=== PATIENT | female | born 1980 | race African-American/Black ===

== ENCOUNTER 2017-03-25 15:43 | Emergency (ER) | payer MEDICAID ==
[2017-03-25] MEDS ORDERED: LIDOCAINE 1% INJ-PF (10 MG/ML) 30 ML SDV INJ ONE (17:22)
[2017-03-25] MEDS ORDERED: ONDANSETRON 4 MG TAB.RAPDIS PO ONE (17:22)
[2017-03-25] MEDS ORDERED: CEFTRIAXONE INJ 1000 MG VIAL IM ONE (17:22)
--- NOTE | 2017-03-25 17:26 | ER Document Report ---
HPI - HPI Patient complains to provider of: Toothache and nausea Onset: Other Onset/Duration: Gradual Quality of pain: Burning, Throbbing Severity: Moderate Pain Level: 3 Context: Patient states she has had a toothache to the right lower jaw since last Monday. Nose that she has a large cavity in that tooth but has not been seen by a dentist. Patient also complains of epigastric burning with nausea since Monday. States she has had these symptoms before. Patient states she has a history of frequent heartburn Associated Symptoms: Nausea Exacerbated by: Food Relieved by: Denies Similar symptoms previously: Yes Recently seen / treated by doctor: No - ROS ROS below otherwise negative: Yes Systems Reviewed and Negative: Yes All other systems reviewed and negative - CONSTITUTIONAL Constitutional: DENIES: Fever - EENT EENT: DENIES: Congestion - NEURO Neurology: DENIES: Headache - CARDIOVASCULAR Cardiovascular: DENIES: Chest pain - RESPIRATORY Respiratory: DENIES: Trouble Breathing - GASTROINTESTINAL Gastrointestinal: REPORTS: Abdominal Pain - Epigastric burning, Nausea - URINARY Urinary: DENIES: Dysuria - REPRODUCTIVE Reproductive: DENIES: : - MUSCULOSKELETAL Musculoskeletal: DENIES: Extremity pain - DERM Skin Color: Normal Past Medical History - General Information source: Patient - Social History Smoking Status: Never Smoker Frequency of alcohol use: None Drug Abuse: None Lives with: Family Family History: Reviewed & Not Pertinent - Medical History Medical History: Negative Surgical Hx: Negative Vertical Provider Document - CONSTITUTIONAL Agree With Documented VS: Yes Exam Limitations: No Limitations General Appearance: WD/WN - INFECTION CONTROL TRAVEL OUTSIDE OF THE [place] IN LAST 30 DAYS: No - HEENT HEENT: Atraumatic, Normocephalic Mouth Diagram: 1 - Large amount of decay to tooth, mild swelling to gums around tooth. - NECK Neck: Normal Inspection, Supple - RESPIRATORY Respiratory: Breath Sounds Normal, No Respiratory Distress O2 Sat by Pulse Oximetry: 100 - CARDIOVASCULAR Cardiovascular: Regular Rate, Regular Rhythm - GI/ABDOMEN Gastrointestinal: Abdomen Soft, Normal Bowel Sounds Notes: Patient mildly tender to epigastric area on palpation. States pain level 2 out of 5 with pressure. - MUSCULOSKELETAL/EXTREMETIES Musculoskeletal/Extremeties: MAEW - NEURO Level of Consciousness: Awake, Alert, Appropriate - DERM Integumentary: Warm, Dry Course - Re-evaluation Re-evalutation: 03/25/17 18:58 Patient states relief of epigastric pain with GI cocktail. - Vital Signs Vital signs: Temp Pulse Resp BP Pulse Ox 98.2 F 62 16 137/82 H 100 03/25/17 15:53 03/25/17 15:53 03/25/17 15:53 03/25/17 15:53 03/25/17 15:53 Discharge - Discharge Clinical Impression: Pain due to dental caries, Epigastric pain Condition: Good Disposition: HOME, SELF-CARE Instructions: Abdominal Pain ([facility]), Antinausea Medication ([facility]), Penicillin V K ([facility]), Toothache ([facility]) Additional Instructions: Take all antibiotics as prescribed for dental pain/infection You must follow-up with a dentist for further evaluation of dental problems Zirconia diet for several days. No spicy or greasy foods. Schedule follow-up appointment with your doctor for evaluation of epigastric pain/heartburn which was relieved with GI cocktail tonight Return as needed Prescriptions: Hydrocodone/Acetaminophen [[place] 5-325 mg Tablet] 1 tab PO PRN PRN #15 tablet PRN Reason: Penicillin V Potassium [Penicillin Vk 500 mg Tablet] 500 mg PO QID #28 tablet Ranitidine HCl [Zantac 150 mg Tablet] 150 mg PO BID #60 tablet
[2017-03-25] MEDS ORDERED: LIDOCAINE 2% VISCOUS SOLN 20 ML UDCUP PO ONE (18:05)
[2017-03-25] MEDS ORDERED: METOCLOPRAMIDE HCL ORAL SOLN 10 MG/10 ML UDCUP PO ONE (18:05)
[2017-03-25] MEDS ORDERED: MAG HYDROX/AL HYDROX/SIMETH SUSP 30 ML UDCUP PO ONE (18:05)
[2017-03-25 19:25] VITALS: BP 126/77
== END 2017-03-25 19:25 | disposition home or self-care (01) ==
LOC: ER 15:43
DX: K02.9 Dental caries, unspecified (principal); R10.13 Epigastric pain; R11.0 Nausea
CPT/HCPCS: 99282; 96372; S0119; J3490 ×4; J0696